=== PATIENT | female | born 1995 | race Caucasian/White ===

== ENCOUNTER 2020-04-08 01:12 | Outpatient (CLI) | payer OTHER, MEDICAID, SELFPAY ==
[2020-04-08 14:28] LABS: Kit/Specimen SENT
[2020-04-08 14:38] LABS: Glucose,1 Hr (Glucola) 111 mg/dL (80-140)
[2020-04-08 15:48] LABS: FREE T4 0.94 ng/dL (0.76-1.46); TSH 2.53 uIU/mL (0.36-3.74)
[2020-04-09 09:23] LABS: Hepatitis B Surface Ag Negative (Negative)
[2020-04-09 10:07] LABS: HIV-1/2 Ag & Ab Screen Negative (Negative)
[2020-04-09 10:25] LABS: Hepatitis C Ab w Rflx HCV PCR Negative (Negative)
[2020-04-09 10:27] LABS: *AMPHETAMINES SCREEN URINE Negative (Negative); *BARBITURATES SCREEN URINE Negative (Negative); *BENZODIAZEPINES SCREEN URINE Negative (Negative); Cannabinoids THC Negative (Negative); Cocaine Screen,Urine Negative (Negative); METHADONE URINE SCREEN Negative (Negative); OPIATES URINE SCREEN Negative (Negative)
[2020-04-09 10:28] LABS: Tricyclic Antidepressants Negative (Negative)
[2020-04-09 10:43] LABS: Rubella IgG Ab (UVM) Positive (See Note); Varicella IgG Antibody Positive (See Note)
[2020-04-10 13:28] LABS: Syphilis Total Ab w/Reflex Nonreactive (Nonreactive)
[2020-04-10 13:43] LABS: Chlamydia Result Negative (Negative); GC Result Negative (Negative)
[2020-04-16 12:53] LABS: Buprenorphine Negative; Norbuprenorphine Negative
== END 2020-04-08 01:32 ==
PROVIDERS: Visit Provider Advanced Practice Midwife
DX: Z34.91 Encounter for supervision of normal pregnancy, unspecified, first trimester (principal); Z36.89 Encounter for other specified antenatal screening; Z11.59 Encounter for screening for other viral diseases; Z11.4 Encounter for screening for human immunodeficiency virus [HIV]; Z11.3 Encounter for screening for infections with a predominantly sexual mode of transmission
CPT/HCPCS: 36415; 80307; 82950; 86787; 86803; 86850; 86900; 86901; 87340; 87389; 87491; 87591; 84439; 84443; 86762; 86780; 87086

== ENCOUNTER 2020-05-13 02:13 | Outpatient (CLI) | payer OTHER, MEDICAID, SELFPAY ==
[2020-05-13 09:37] LABS: Abs Immature Grans 0.03 10^3/uL (0.0-0.06); Absolute Basophil Count 0.04 10^3/uL (0.0-0.2); Absolute Eosinophil Count 0.15 10^3/uL (0.0-0.7); Absolute Lymphocyte Count 1.96 10^3/uL (1.2-3.4); Absolute Monocyte Count 0.52 10^3/uL (0.1-0.8); Absolute Neutrophil Count 5.25 10^3/uL (1.2-6.7); Basophils % 0.5; Eosinophils % 1.9; HCT 37.4 % (36.0-46.0); HGB 12.7 g/dL (11.2-15.7); Immature Grans % 0.4; Lymphocytes % 24.7; MCV 94.2 fL (80-95); MPV 10.3 fL (8.0-11.0); Monocytes % 6.5; Nucleated RBC 0 %; Platelet Count 231 10^3/uL (130-400); RBC 3.97 10^6/uL (3.93-5.22); RDW 12.5 % (11.7-14.6); RDW-SD 43.3 fL; WBC 7.95 10^3/uL (4.4-10.8)
[2020-05-13 10:39] LABS: FREE T4 0.91 ng/dL (0.76-1.46); TSH 2.17 uIU/mL (0.36-3.74)
[2020-05-15 18:35] LABS: Thyroid Stimulating Immunoglob <1.0 TSI index (<=1.3)
== END 2020-05-13 02:33 ==
PROVIDERS: Visit Provider Advanced Practice Midwife
DX: E04.1 Nontoxic single thyroid nodule (principal)
CPT/HCPCS: 84439; 84443; 84445; 85025

== ENCOUNTER 2020-06-10 01:42 | Outpatient (CLI) | payer OTHER, MEDICAID, SELFPAY ==
--- NOTE | 2020-06-10 07:15 | DI.US_ITS ---
EXAM: US OB 2-3 TRIMESTER CLINICAL HISTORY: ,z34.90 TECHNIQUE: Ultrasound performed using standard protocol. COMPARISON: US BIOPHYSICAL PROFILE AND LTD OB from 02/09/2018 FINDINGS: Ob ultrasound was performed utilizing 2nd trimester protocol. There is a single viable fetus. biometry is consistent with gestational age 21 weeks 1 day and EDC of October 20, 2020. The placenta is anterior with no evidence of placenta previa. There is a normal quantity of amniotic fluid. anomaly screen is within normal limits as per the attached checklist. cardiac rate is 147 BPM. IMPRESSION: Unremarkable 2nd trimester scan as described above DATA REPOSITORY:
== END 2020-06-10 02:02 ==
PROVIDERS: Visit Provider Advanced Practice Midwife
DX: Z34.92 Encounter for supervision of normal pregnancy, unspecified, second trimester (principal)
CPT/HCPCS: 76805

== ENCOUNTER 2020-06-10 14:57 | Outpatient (CLI) | payer OTHER, MEDICAID, SELFPAY ==
[2020-06-12 12:58] LABS: AFP 80.7 ng/mL; Calculated age at EDD 27 years; Cigarette smoking status non-Smoker; GA used in risk estimate Scan estimate; IVF Pregnancy No; Initial or repeat testing Initial testing; Insulin dependent diabetes No; Maternal Weight 210 lbs; Number of Fetuses 1; Physician Phone Number 802-748-7300; Prev Pregnancy w/NTD No
[2020-06-15 13:03] LABS: Recalculated Maternal Serum Sc See Comments
== END 2020-06-10 15:17 ==
PROVIDERS: Visit Provider Advanced Practice Midwife
DX: Z34.92 Encounter for supervision of normal pregnancy, unspecified, second trimester (principal); Z36.89 Encounter for other specified antenatal screening
CPT/HCPCS: 36415; 82105

== ENCOUNTER 2020-08-05 04:08 | Outpatient (CLI) | payer OTHER, MEDICAID, SELFPAY ==
[2020-08-05 10:39] LABS: HCT 34.4 % (36.0-46.0); HGB 11.9 g/dL (11.2-15.7); MCH 32.6 pg (27.0-33.0); MCHC 34.6 % (32.0-36.0); MCV 94.2 fL (80-95); MPV 10.5 fL (8.0-11.0); Platelet Count 229 10^3/uL (130-400); RBC 3.65 10^6/uL (3.93-5.22); RDW 12.3 % (11.7-14.6); RDW-SD 42.7 fL; WBC 8.94 10^3/uL (4.4-10.8)
[2020-08-05 10:43] LABS: Glucose,1 Hr (Glucola) 100 mg/dL (80-140)
[2020-08-05 11:45] LABS: FREE T4 0.88 ng/dL (0.76-1.46); TSH 1.57 uIU/mL (0.36-3.74)
== END 2020-08-05 04:28 ==
PROVIDERS: Visit Provider Advanced Practice Midwife
DX: O99.283 Endocrine, nutritional and metabolic diseases complicating pregnancy, third trimester (principal); E04.1 Nontoxic single thyroid nodule
CPT/HCPCS: 36415; 82950; 85027; 84439; 84443

== ENCOUNTER 2020-09-01 02:15 | Outpatient (CLI) | payer OTHER, MEDICAID, SELFPAY ==
--- NOTE | 2020-09-01 08:00 | DI.US_ITS ---
EXAM: US OB STEVIE WEIGHT CLINICAL HISTORY: S>D,O26.843 TECHNIQUE: Ultrasound performed using standard protocol. COMPARISON: US US OB 2-3 TRIMESTER from 06/10/2020 FINDINGS: Ob ultrasound was performed utilizing 3rd trimester protocol. biometry is consistent with gest ational age of 34 weeks 3 days. The estimated weight is 2459 grams which is at the 95th percen tile for predicted gestational age. Placenta is anterior with no placenta previa. There is visually a normal quantity of amniotic fluid and the STEVIE is 19. heart rate is 120 BPM. IMPRESSION: DATA REPOSITORY:
== END 2020-09-01 02:35 ==
PROVIDERS: PCP Nurse Practitioner Family; Visit Provider Advanced Practice Midwife
DX: O26.843 Uterine size-date discrepancy, third trimester (principal)
CPT/HCPCS: 76816

== ENCOUNTER 2020-09-29 01:04 | Outpatient (CLI) | payer OTHER, MEDICAID, SELFPAY ==
--- NOTE | 2020-09-29 06:45 | DI.US_ITS ---
EXAM: US OB STEVIE WEIGHT CLINICAL HISTORY: interval growth,o26.843. TECHNIQUE: Transabdominal obstetrical ultrasound performed. COMPARISON: US US OB STEVIE WEIGHT from 09/01/2020 FINDINGS: Transabdominal obstetrical ultrasound performed. FINDINGS: Number of fetuses: One. position: Cephalic. Placental location: Anterior no evidence of previa. BIOMETRIC DATA: EFW: 3651 grms 98% Composite Age: 37 weeks 6 days EDC: 10/14/2020 Heart Rate: 131BPM Amniotic fluid index: 14.1 cm. Visually, amount of fluid is within normal limits. IMPRESSION: 1. Single live intrauterine gestation as above. 2. Estimated weight is 3651gms. 3. Amniotic fluid index is 14.1 cm. Visually within normal limits. DATA REPOSITORY:
== END 2020-09-29 01:24 ==
PROVIDERS: PCP Nurse Practitioner Family; Visit Provider Advanced Practice Midwife
DX: O26.843 Uterine size-date discrepancy, third trimester (principal); Z3A.37 37 weeks gestation of pregnancy
CPT/HCPCS: 76816

== ENCOUNTER 2020-09-29 15:01 | Outpatient (REF) | payer OTHER, MEDICAID, SELFPAY ==
[2020-09-29 13:56] LABS: *AMPHETAMINES SCREEN URINE Negative (Negative); *BARBITURATES SCREEN URINE Negative (Negative); *BENZODIAZEPINES SCREEN URINE Negative (Negative); Cannabinoids THC Negative (Negative); Cocaine Screen,Urine Negative (Negative); METHADONE URINE SCREEN Negative (Negative); OPIATES URINE SCREEN Negative (Negative)
[2020-09-29 13:57] LABS: Tricyclic Antidepressants Negative (Negative)
[2020-10-04 12:24] LABS: Buprenorphine Negative
== END 2020-09-29 15:21 ==
LOC: LBN 15:01
PROVIDERS: PCP Nurse Practitioner Family; Visit Provider Advanced Practice Midwife
DX: Z34.93 Encounter for supervision of normal pregnancy, unspecified, third trimester (principal)
CPT/HCPCS: 80307; 87081

== ENCOUNTER 2020-10-29 13:48 | Inpatient (IN) | payer OTHER, MEDICAID, SELFPAY ==
[2020-10-29] VITALS (25 sets, daily range): BP systolic 117–184; BP diastolic 70–90; PULSE 75–114; RESP 18–20; TEMP 36.4–37.2; O2SAT 95–99
--- NOTE | 2020-10-29 13:51 | W.PM.OBHPL1 ---
Date of service: 10/29/20 Time of Service: 13:51 Assessment and Plan Assessment and plan (1) Normal labor: Start date: 10/29/20 Start time: 13:59 Status: Acute Assessment and plan: Admit and plan for vaginal deliveryKH (2) : Start date: 10/29/20 Start time: 13:59 Status: Acute (3) Size of fetus inconsistent with dates in third trimester: Start date: 10/29/20 Start time: 13:59 Status: Acute Assessment and plan: Total weight gain 61lb. BMI 42 increased risk for shoulder dystocia reviewed.KH OB-HPI Labor/Delivery History of Present Illness Chief Complaint: Uterine Contractions. AYO Calculator Estimated Delivery Date Method Current WG Current Estimate 10/24/20 Ultrasound #1 40w 5d Other Estimates 10/17/20 LMP (Certain) 41w 5d Comments: Contractions begn this morning at 0830, some bloody show, no LOF.KH History of Present Expected Delivery Route/Plan - CNM FOB/boyfriend - Filiberto (2nd baby together) BB yes to circ GBS negative Specific Issues/Plan 1. History of thyroid nodules and pos. thyroid peroxidase - Thyroid labs every trimester - drawn 04/08 - T4 0.94/ TSH 2.53 1a. Per MD consult - refer to shipping and receiving assistant for continued care, Draw TSH and T4 every trimester with TSI neg 1b. TSH/T4 at 15 wks =nml 1c. TSH/T4 at 28 wks = nml 2. Elevated BMI/hx poly- early glucose-111; glucola @ 28 wks = 100 3. Lovilia testing - drawn 04/08, Previous neg CF carrier, declines SMA 3a. Lovilia result low prob x3, male, 3b. AFP drawn 06/10, result low risk for NTD 4. Daughter is 2 yrs old, speech/motor delay and webbed toes on left foot, in daycare, speech therapy & OT 4a. 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 pt states she was told she did not need genetic w/up for this , declined amnio @ [facility] [place] Review of Systems All systems reviewed & are unremarkable except as noted in HPI and below [facility] Medical History (Updated 10/29/20 @ 13:58 by Arcelia Craven CNM) Multiple thyroid nodules 07/2017. Benign in appearance. Normal TSH. + peroxidase antibodies. No further eval at this time. Positive test Thyroid nodule Surgical History [place] teeth extraction Family History (Updated 04/08/20 @ 13:12 by Arcelia Arnold CNM) Maternal Grandfather Colon cancer Diabetes Paternal Grandfather Diabetes Paternal Aunt Diabetes Mother Hyperlipidemia Social History Smoking/Tobacco Use Status: Never Smoking risk assessment performed?: Yes Female Reproductive History Menstrual control method: none History History 2 Para 1 Hx # Term Pregnancies 0 Multiple births 0 Hx # Pregnancies 0 Ectopic pregnancies 0 AB induced 0 Hx Number of Living Children 1 AB spontaneous 0 Past Pregnancies Del. Date GA/Weeks # Outcome Route Wgt Sex Labor Lgth Anesthesia Location Prov Complic Unknown 02/14/18 39 No Successful vaginal 7 lb 9 oz Female 40 hours. [facility] [place] Delivery Date: baby has speech delay and motor delay - being tested at [facility] [place] Arcelia Arnold Delivery Date: 02/14/18 IOL at 39 weeks for polyhydramnios, Arcelia Arnold Meds Home Medications and Allergies Home Medications Medication Instructions Recorded Confirmed Type prenat.vits,henry,cbq-gkpr-llkaf 1 tab PO DAILY 02/13/20 10/13/20 History Allergies Allergy/AdvReac Type Severity Reaction Status Date / Time No Known Allergies Allergy Unverified 10/28/20 14:38 Exam Constitutional Constitutional: mild distress and obese Comments: uncomfortable with contractions but doing well, plans minimal intervention, nitrous and or IV pain med only if needed. denies need for epidural. Detailed Labor and Delivery Exam Dilation: 7 Effacement (%): 90 station: -2 Position: OA Cervix position: mid Consistency: soft Sandhu Score: Cervical Points Exam 0 1 2 3 Dilation Closed 1-2cm 3-4 cm 5-6cm Effacement 0-30% 40-50% 60-70% 80% Consistency Firm Medium Soft Station -3 -2 -1,0 +1,+2 Position Posterior Mid Anterior SANDHU Score(Cervical Ripeness Score): 10 Amniotic Membrane Status: Intact Contraction Frequency(min): 2-3 minutes Contraction Duration(sec): 60 sec Contraction Intensity: Moderate/Strong Fetus A Heart Rate Baseline: 125 Monitor Accelerations: 15 X 15 Monitor Decelerations: Early Variability: Moderate (6-25 BPM) Presentation: Cephalic Categories: Category I Est. Weight: 8 lb Assessment Note: Reassuring status will allow for intermittent EFM. HEENT Exam HEENT Exam: Normal Neck Exam Neck Exam: Not Done Chest/Brest/Axilla Exam Chest Exam: Normal Breast Exam Breast Exam: Normal Respiratory Exam Respiratory Exam: Normal Cardiovascular Exam Cardiovascular Exam: Normal Abdominal Exam Abdominal Exam: Normal Rectal Exam Rectal Exam: Not Done Exam Exam: Normal Extremities Exam Extremities Exam: Normal Back/Spine/Pelvis Exam Back Exam: Normal Pelvis Adequate: Yes Skin Exam Skin Exam: Normal Neurological Exam Neurological Exam: Normal Psychiatric Exam Psychiatric Exam: Normal Risk Assessment Risk for Shoulder Dystocia Historical/Initial OB: POSITIVE FOR: Pre- BMI>30; NEGATIVE FOR: Pelvic Abnormality, Previous Shoulder Dystocia or Previous Macrosomia 40 Weeks: POSTIVE FOR: Maternal Weight Gain >40lb and Post Dates; NEGATIVE FOR: EFW> 4500 gms Increased Risk?: Yes Counseling: discussed EFW in 98th percentile Date/Initial: 10/29/20 Delivery Plan @ 36wks: spont labor and Delivery Plan @ 40 wks: spont labor and , repeat sono for growth and fluid at 41 wks Risk for Pre-Eclampsia Daily Dose ASA Indicated: No Yes, if one or more: NEGATIVE FOR: Hx Pre-E/Gest HTN, Chronic HTN, Multiple Gestation, Pre-gestational DM, Renal Disease, Systemic Lupus or APA Syndrome Yes, if 2 or more: POSITIVE FOR: BMI>30; NEGATIVE FOR: Nulliparity, Age>= 35 yrs, >10yr btwn pregnancies, ethinicty, Mother/Sister w/ Pre-E or Previous IUGR Risk for Post- Hemorrhage Initial: NEGATIVE FOR: Multiple Gestation, Previous PPH, Known Clotting Deficiency, Grand Multiparity or Anticoagulation At Risk?: No Counseled re: Active Management: Yes Date/Initials: 10/30/20 Risks Reviewed Risks Reviewed Upon Admission: Yes
[2020-10-29 14:19] LABS: HCT 37.7 % (36.0-46.0); HGB 12.7 g/dL (11.2-15.7); MCH 31.8 pg (27.0-33.0); MCHC 33.7 % (32.0-36.0); MCV 94.5 fL (80-95); MPV 11.8 fL (8.0-11.0); Platelet Count 198 10^3/uL (130-400); RBC 3.99 10^6/uL (3.93-5.22); RDW 12.8 % (11.7-14.6); RDW-SD 43.9 fL
[2020-10-29] MEDS: Oxytocin 10 UNITS/ML VIAL IM (17:22)
--- NOTE | 2020-10-29 17:59 | OBVDS_ITS ---
Date of service: 10/29/20 Time of Service: 17:59 OB Labor/ Delivery Information Baby A Delivery Delivery Method: Spontaneaous Presentation: Cephalic Cephalic Position: Vertex Vertex Position: Left Occipital Anterior Breech Position: N/A Cord Description-Baby A: 3 Vessels Amniotic Fluid: Meconium (light meconium noted when baby's head delivered en caul.) Estimated Blood Loss: 350ml Delivery Outcome: Liveborn Infant Complications: none Transferred: Remains with Mother Note: LIve male delivers ZEYAD over second degree perineal / vaginal laceration. Baby's head delivered encaul and it was noted to have some green tinged fluid in bag at delivery. No nuchal cord. Baby to Mother's chest for skin to skin. Positive bonding noted by both parents. 7 at 1 minute and 8 at 5 minutes. 3 vessel cord noted. Placenta delivers via ty mechanism 7 minutes following baby's delivery, intact, marginal cord insertion noted. Cord bloods obtained. Fundus firms to below U with massage and 10 units pitocin IM. Laceration is infiltrated with 1% lidocaine and repaired in usual fashion with 3.0 vicryl suture, pack times 1. Vaginal sweep done. Sponge, instrument and needle count correct. EBL 350cc. Mother and baby are in satisfactory condition. Patient plans circumcision for baby. Contraception plan IUD. Providers Nurse Web Marketing Manager: Arcelia Craven Labor/Delivery Information Number of Babies in Womb: 1 Steroids Given: None Reason Steroids Not Administered: N/A Group Beta Strep: Negative Antibiotics Administered: No Rubella Status: Immune Blood Type: A+ Varicella Immunity: Immune Medication in Delivery: 10 units pitocin IM after baby delivered.KH Born En Route: No Maternal Complications: None Shoulder Dystocia: No Stages of Labor Onset of Labor Date: 10/29/20 Onset of Labor Time: 08:30 Complete Dilatation Date: 10/29/20 Complete Dilatation Time: 16:46 Labor - Stage 1 Duration: 0 minutes ROM Baby A: 10/29/20 ROM Baby A: 16:50 Delivery Date-Baby A: 10/29/20 Infant Delivery Time-Baby A: 17:15 Labor Stage 2 Duration: 29 minutes Placenta Delivery Date-Baby A: 10/29/20 Placenta Delivery Time-Baby A: 17:22 Labor-Stage 3 Duration: 7 minutes Total Length of Labor-Baby A: 8 hours and 45 minutes Placenta Cultured: No Placenta Status: Delivered Baby A Gender: Male Gestational Status: Term (39-41.6 wks) Gestational Age in Weeks/Days: 40 Weeks and 5 Days Interventions Repair of Laceration Type: Perineal , Laceration Extension: Second Degree . Sponge Count Correct: No Sponges Placed in Vagina , Sharp Count Correct: Yes . Laceration Repair Note: repaired under 1% lidocaine in usual fashion with 3.0 Vicryl suture.REID
[2020-10-30 00:30] VITALS: BP 123/83; PULSE 105; RESP 18; TEMP 37.5
[2020-10-30 00:33] LABS: COVID-19 RT-PCR UVMMC Result Negative (Negative)
[2020-10-30 06:55] LABS: HGB 11.3 g/dL (11.2-15.7); MCH 32.2 pg (27.0-33.0); MCHC 34.2 % (32.0-36.0); MPV 11.6 fL (8.0-11.0); Platelet Count 207 10^3/uL (130-400); RBC 3.51 10^6/uL (3.93-5.22); RDW 13.2 % (11.7-14.6); RDW-SD 44.8 fL; WBC 15.18 10^3/uL (4.4-10.8)
--- NOTE | 2020-10-30 08:32 | OBPPV_ITS ---
Date of service: 10/30/20 Time of Service: 08:32 Subjective Subjective Interval history: Feeling well. OOB without assist. Denies heavy bleeding. Denies perineal pain. Voiding without difficulty. Stooled with delivery. going well. Patient comments: No complaints, Pain well controlled and Tolerating diet Patient's Mood: Happy with and positive family bonding noted. [place] baby status: Doing well, Nursing well, Rooming in and Strong Bonding Observed [place] feeding status: Exclusively breast feeding Narrative: Dr. Krueger aware that family desires circumcision. Will continue present management. Discharge later tonight or am. VS and H&H are stable.KH Exam Physical Exam Vital signs: Temp Pulse Resp BP Pulse Ox 99.5 F 105 H 18 123/83 99 10/30/20 00:30 10/30/20 00:30 10/30/20 00:30 10/30/20 00:30 10/29/20 21:45 Results Hemoglobin/Hematocrit: Hgb 11.3 g/dL (11.2-15.7) 10/30/20 06:38 Hct 33.0 % (36.0-46.0) L 10/30/20 06:38 Abnormal Lab Findings: Abnormal Labs 10/29/20 10/30/20 14:10 06:38 WBC 12.20 H 15.18 H RBC 3.51 L Hct 33.0 L MPV 11.8 H 11.6 H
[2020-10-30 09:45] VITALS: BP 115/82; PULSE 97; RESP 20; TEMP 36.9; O2SAT 97
[2020-10-30] MEDS: Acetaminophen 325 MG TAB 650 MG PO ×2 (10:04→20:24)
[2020-10-30] MEDS: Docusate Sodium 100 MG CAP PO (10:04)
[2020-10-30 13:25] VITALS: BP 107/77; PULSE 92; RESP 18; TEMP 36.8; O2SAT 96
[2020-10-30 16:40] VITALS: BP 121/78; PULSE 86; RESP 16; TEMP 36.8; O2SAT 97
[2020-10-30 21:00] VITALS: BP 121/86; PULSE 89; RESP 16; TEMP 36.6; O2SAT 98
--- NOTE | 2020-10-31 07:54 | DSE_ITS ---
Date of service: 10/31/20 Time of Service: 07:54 DS: Diagnosis Discharge Diagnosis (1) Normal labor: Status: Acute (2) : Status: Acute (3) Size of fetus inconsistent with dates in third trimester: Status: Acute (4) Normal vaginal delivery: Status: Acute (5) Perineal laceration during delivery, condition: Status: Acute (6) Lactating mother: Status: Acute Discharge Plan Disposition Patient Disposition: HOME Condition: Good Discharge Details Reason For Visit: TERM LABOR Admit Date/Time: 10/29/20 13:48 Admit Provider: Arcelia Craven Attending Provider: Arcelia Craven Primary Care Provider: Unknown,Unknown Hospital Course Hospital Course: G2 now P2 presented in active labor and progressed normally. NVD of live male over 2nd degree perineal / vaginal laceration that was repaired with 3.0 Vicryl in usual fashion. Baby weight 9lb 6.7 oz. 7/8. Normal PP course. Plans IUD at 6 week PP visit. Will make appointment for 2 and 6 weeks appointments. Home Meds and New Rx's Prescriptions: Continued prenat.vits,henry,[id number]-[id number] Tablet 1 tab PO DAILY RF: 0 Discharge Instructions Instructions: Depression (GEN), Perineal Care (DC), Intrauterine Device (GEN), Expression, Collection and Storage of Breast Milk (GEN), and Breast Engorgement (GEN), Bleeding (DC), Breast Care for the Mother (GEN) Activity:: no sexual activity 6 wk Equipment/Supplies:: No Equipment Needed Diet:: As Tolerated Discharge Orders Discharge Orders: Discharge Order (Routine); Ordered 10/31/20 Ordered By: Arcelia Craven Discharge Data Discharge Comment: Discharged to home in satisfactory condition. OB:DS Summary Summary Vaginal Delivery Method: Spontaneaous Episiotomy Description: Midline Laceration Description: Perineal Laceration Extension: Second Degree Contraception Discussed Contraception Discussed: Yes (plan IUD at 6 week PP) Contraceptive Plan: IUD, Infant Gender-Baby A: Male weight: 9 lb 10.676 oz Status at Discharge Functional status at discharge: independent ambulation Overall status at discharge: patient is back to baseline Mental Status: mental status grossly normal Speech and Movement: speech and movement normal Mood: congruent mood Affect: normal affect Exam Physical Exam Vital signs: Temp Pulse Resp BP Pulse Ox 97.9 F 89 16 121/86 98 10/30/20 21:00 10/30/20 21:00 10/30/20 21:00 10/30/20 21:00 10/30/20 21:00 Vital Signs Reviewed: Yes Constitutional Constitutional: no acute distress, obese and cooperative HEENT Exam HEENT Exam: Normal (all normal on visual exam) Neck Exam Neck Exam: Normal Breast Exam nipples intact bilaterally: Breast Exam: Normal Nipple Exam: Normal Respiratory Exam Respiratory Exam: Normal Cardiovascular Exam Cardiovascular Exam: Normal Fundal Exam Fundus: Below Umbilicus and Firm Rectal Exam Rectal Exam: Not Done Exam Patient deferred: external exam and perineal exam Perineum: Edematous (mild edema otherwise normal ) Extremities Exam Extremity Exam: Normal Back/Spine/Pelvis Exam Back Exam: Not Done Skin Exam Skin Exam: Normal Neurological Exam Neurological Exam: Normal Psychiatric Exam Psychiatric Exam: Normal Additional findings Additional findings: Feeling well and is well. Denies concerns for discharge.[facility] Medical History Multiple thyroid nodules 07/2017. Benign in appearance. Normal TSH. + peroxidase antibodies. No further eval at this time. Positive test Thyroid nodule Surgical History [place] teeth extraction Family History Maternal Grandfather Colon cancer Diabetes Paternal Grandfather Diabetes Paternal Aunt Diabetes Mother Hyperlipidemia Social History Smoking/Tobacco Use Status: Never Smoking risk assessment performed?: Yes Alcohol Intake: never Substance use type: does not use Do you feel safe at home: Yes Do you feel safe in your relationship?: Yes Female Reproductive History Menstrual control method: none History History 2 Para 1 Hx # Term Pregnancies 0 Multiple births 0 Hx # Pregnancies 0 Ectopic pregnancies 0 AB induced 0 Hx Number of Living Children 1 AB spontaneous 0 Past Pregnancies Del. Date GA/Weeks # Outcome Route Wgt Sex Labor Lgth Anesthes ia Location Prov Complic Unknown 02/14/18 39 No Successful vaginal 7 lb 9 oz Female 40 hours. [facility] Delivery Date: baby has speech delay and motor delay - being tested at [facility] Arcelia Arnold Delivery Date: 02/14/18 IOL at 39 weeks for polyhydramnios, Arcelia Arnold DS: Data Vitals/I&O Vitals and I&O: Vital Signs Temperature 97.9 F 10/30/20 21:00 Pulse 89 10/30/20 21:00 Pulse Rhythm Regular 10/30/20 21:00 Respiratory Rate 16 10/30/20 21:00 Blood Pressure 121/86 10/30/20 21:00 Blood Pressure Mean 97 10/30/20 21:00 Pulse Oximetry 98 10/30/20 21:00 Oxygen Delivery Method Room Air 10/29/20 13:25 Oxygen Flow Rate 0 10/29/20 13:25 Pain Level 1 10/30/20 16:40 Comment 10/29/20 20:53 Data Completed and Pending Labs on day of discharge: Labs from last 24 hours 10/29/20 13:49 SARS-CoV-2 (PCR) Negative Nasopharyn COVID-19 PCR Not Applicable Ref Test Perform Site [facility] lab
[2020-10-31 09:00] VITALS: BP 122/78; PULSE 108; RESP 16; TEMP 36.8; O2SAT 98
[2020-10-31] MEDS: Docusate Sodium 100 MG CAP PO (09:45)
== END 2020-10-31 12:15 | disposition home or self-care (01) | DRG 807 ==
PROVIDERS: Admitting Provider Advanced Practice Midwife; Visit Provider Advanced Practice Midwife
DX: O99.284 Endocrine, nutritional and metabolic diseases complicating childbirth (principal); Z37.0 Single live birth; Z3A.40 40 weeks gestation of pregnancy; O36.63X0 Maternal care for excessive fetal growth, third trimester, not applicable or unspecified; E07.89 Other specified disorders of thyroid; O69.89X0 Labor and delivery complicated by other cord complications, not applicable or unspecified; O77.0 Labor and delivery complicated by meconium in amniotic fluid; O70.1 Second degree perineal laceration during delivery; Z20.828 Contact with and (suspected) exposure to other viral communicable diseases
CPT/HCPCS: 36415; 85027; 86850; 86900; 86901; U0003; J2590

== ENCOUNTER 2020-12-10 12:25 | Outpatient (REF) | payer OTHER, MEDICAID, SELFPAY ==
--- NOTE | 2020-12-10 11:30 | PAPFT_PTH ---
PATIENT: Ruthy Gimenez LOC: [facility] U#:[id number] AGE/SX: 25/F ROOM: RE12/10/[address]: Arcelia Craven CNM : 1995 BED: DIS: 12/10/2020 SPEC #: [id number] RECD: 12/10/20 17:31 STATUS: BIANCA REQ #: [id number] MIRA: 12/10/20 11:[address]: Arcelia Craven [facility] Cytology RECD BY: Radha Dowling ENTERED: 12/10/20 17:31 SP TYPE: PAPFT OT DR: Unknown,Unknown Tissues: 1 - CX/ENDOCX FOR PAP SMEARS Procedures: PAP THIN PREP/[facility] Screening Comments: [id number]
[2020-12-11 16:25] LABS: Chlamydia Result Negative (Negative); GC Result Negative (Negative)
== END 2020-12-10 12:26 | disposition home or self-care (01) ==
LOC: LBN 12:25
PROVIDERS: Visit Provider Advanced Practice Midwife
DX: Z11.3 Encounter for screening for infections with a predominantly sexual mode of transmission (principal); Z12.4 Encounter for screening for malignant neoplasm of cervix
CPT/HCPCS: 87491; 87591; 88142

== ENCOUNTER 2022-02-02 01:28 | Outpatient (CLI) | payer BC, MEDICAID, SELFPAY ==
[2022-02-02 16:10] LABS: FREE T4 0.99 ng/dL (0.76-1.46); TSH 2.13 uIU/mL (0.36-3.74)
[2022-02-02 22:04] LABS: T3,Free 3.9 pg/mL (2.8-5.3)
== END 2022-02-02 01:29 | disposition home or self-care (01) ==
LOC: LBO 01:30
PROVIDERS: Visit Provider Advanced Practice Midwife
DX: E04.1 Nontoxic single thyroid nodule (principal)
CPT/HCPCS: 36415; 84439; 84443; 84481

== ENCOUNTER 2023-12-27 16:03 | Outpatient (REF) | payer BC, MEDICAID, SELFPAY ==
--- NOTE | 2023-12-27 15:50 | PAPFT_PTH ---
PATIENT: Ruthy Gimenez LOC: [facility] U#:[id number] AGE/SX: 28/F ROOM: RE12/27/[address]: Areclia Craven CNM : 1995 BED: DIS: 12/27/2023 SPEC #: [id number] RECD: 12/27/23 18:16 STATUS: BIANCA REQ #: [id number] MIRA: 12/27/23 15:[address]: Arcelia Craven DEPT: [facility] Cytology RECD BY: Radha Dowling ENTERED: 12/27/23 18:16 SP TYPE: PAPFT OT DR: Unknown,Unknown Tissues: 1 - CX/ENDOCX FOR PAP SMEARS Procedures: PAP THIN PREP/[facility] Screening HPV DNA PROBE Comments: [id number]
== END 2023-12-27 16:04 | disposition home or self-care (01) ==
LOC: LBN 16:03
PROVIDERS: Visit Provider Advanced Practice Midwife
DX: E04.1 Nontoxic single thyroid nodule (principal); Z12.4 Encounter for screening for malignant neoplasm of cervix
CPT/HCPCS: 88142; 87624

== ENCOUNTER 2024-01-01 04:22 | Outpatient (CLI) | payer BC, SELFPAY ==
[2024-01-01 15:39] LABS: TSH (W/Ref FT4) 4.02 uIU/mL (0.36-3.74)
[2024-01-01 16:09] LABS: FREE T4 0.89 ng/dL (0.76-1.46)
== END 2024-01-01 04:23 | disposition home or self-care (01) ==
LOC: LBO 04:24
PROVIDERS: Visit Provider Advanced Practice Midwife
DX: E04.1 Nontoxic single thyroid nodule (principal)
CPT/HCPCS: 36415; 84439; 84443

== ENCOUNTER 2025-01-14 03:51 | Outpatient (CLI) | payer OTHER, SELFPAY ==
[2025-01-14 08:14] LABS: ALT 24 U/L (14-59); AST 13 U/L (15-37); Albumin 3.9 g/dL (3.4-5.0); Alkaline Phosphatase 49 U/L (46-116); BUN 16 mg/dL (7-18); Bilirubin, Total 0.7 mg/dL (0.2-1.0); CREATININE 0.8 mg/dL (0.55-1.02); Calculated LDL 107 mg/dL (<100); Chloride 105 mmol/L (98-107); Cholesterol 189 mg/dL (<200); Estimated GFR 100.96 (mL/min/1.73m2); Glucose 89 mg/dL (74-106); HDL Cholesterol 74 mg/dL (>or=50); Potassium 3.6 mmol/L (3.5-5.1); Sodium 138 mmol/L (136-145); TSH (W/Ref FT4) 4.46 uIU/mL (0.36-3.74); Total Protein 7.6 g/dL (6.4-8.2); Triglyceride 40 mg/dL (<150)
[2025-01-14 08:35] LABS: Hemoglobin A1C 5.1 % (<5.7)
[2025-01-14 08:39] LABS: FREE T4 0.82 ng/dL (0.76-1.46)
== END 2025-01-14 03:52 | disposition home or self-care (01) ==
LOC: LBO 03:51
PROVIDERS: PCP Nurse Practitioner Family; Visit Provider Nurse Practitioner Family
DX: Z00.00 Encounter for general adult medical examination without abnormal findings (principal); Z68.30 Body mass index [BMI] 30.0-30.9, adult; E04.1 Nontoxic single thyroid nodule
CPT/HCPCS: 36415; 80053; 80061; 83036; 84439; 84443